=== PATIENT | male | born 1975 | race Caucasian/White ===

== ENCOUNTER 2023-08-08 11:20 | Inpatient (IN) | payer BC ==
[~2023-08-08] VITALS: Ht 177.8 cm; Wt 96.2 kg
[2023-08-08 11:35] VITALS: BP 145/77; PULSE 93; RESP 20; TEMP 98.5; O2SAT 99
[2023-08-08 12:36] LABS: BASOPHILS # (AUTO) 0.1 K/uL (0.00-0.22); BASOPHILS % (AUTO) 0.8 % (0.0-2.0); EOSINOPHILS # (AUTO) 0.7 K/uL (0-0.4); EOSINOPHILS % (AUTO) 7.6 % (0.0-4.0); HEMATOCRIT 39.5 % (36-52); HEMOGLOBIN 13.8 g/dL (12.0-18.0); LYMPHOCYTES # (AUTO) 2.8 K/uL (2.0-11.5); LYMPHOCYTES % (AUTO) 30.2 % (20.5-51.1); MEAN CORPUSCULAR HEMOGLOBIN 30 pg (27-31); MEAN CORPUSCULAR HGB CONC 35 g/dL (33-37); MEAN CORPUSCULAR VOLUME 85.2 fL (80-94); MONOCYTES # (AUTO) 0.7 K/uL (0.8-1.0); MONOCYTES % (AUTO) 7.1 % (1.7-9.3); NEUTROPHILS # (AUTO) 5.1 K/uL (1.8-7.7); NEUTROPHILS % (AUTO) 54.3 % (42.2-75.2); PLATELET COUNT (AUTO) 336 K/uL (140-450); RED BLOOD CELL COUNT(AUTO) 4.63 MIL/uL (4.20-6.10); RED CELL DISTRIBUTION WIDTH 13.1 % (11.6-13.7); WHITE BLOOD COUNT (AUTO) 9.4 K/uL (4.8-10.8)
[2023-08-08 13:17] LABS: ALANINE AMINOTRANSFERASE 19 U/L (12-78); ALBUMIN 3.8 g/dL (3.4-5.0); ALKALINE PHOSPHATASE 109 U/L (50-136); ASPARTATE AMINOTRANSFERASE 11 U/L (15-37); CALCIUM 9.2 mg/dL (8.5-10.1); CARBON DIOXIDE 27.9 mmol/L (21-32); CHLORIDE 105 mmol/L (98-107); CREATININE 0.9 mg/dL (0.6-1.3); GFR ARICAN-AMERICAN 116 mL/min (>90); GFR NON ARICAN-AMERICAN 96 mL/min (>90); GLUCOSE 147 mg/dL (74-106); POTASSIUM 3.9 mmol/L (3.5-5.1); SODIUM SERUM 141 mmol/L (136-145); THYROID STIMULATING HORMONE 0.64 uIU/mL (0.34-3.74); TOTAL BILIRUBIN 0.4 mg/dL (0.0-1.0); TOTAL PROTEIN, SERUM 7.5 g/dL (6.4-8.2); UREA NITROGEN, BLOOD 18 mg/dL (7-18)
[2023-08-08] MEDS ORDERED: MORPHINE SULFATE 2 MG/ML SYR IVP PRN (14:35)
[2023-08-08] MEDS ORDERED: HYDROcodone/APAP 5/325 MG 1 TAB TAB PO PRN (14:35)
[2023-08-08] MEDS ORDERED: ACETAMINOPHEN 325 MG TAB PO PRN (14:35)
[2023-08-08] MEDS: NACL 0.9% 1,000 ML IV SCH (14:48)
[2023-08-08] MEDS ORDERED: DEXTROSE 50% 50 ML SYR IVP PRN (15:50)
[2023-08-08] MEDS ORDERED: INSULIN LISPRO SLIDING SCALE 100 UNITS/ML VIAL SUBQ PRN (15:50)
[2023-08-08] MEDS: BLOOD GLUCOSE MONITORING 1 DEV DEV FS SCH ×2 (16:49→21:42)
[2023-08-08 17:56] VITALS: PULSE 62
[2023-08-08] MEDS ORDERED: QUEtiapine FUMARATE 100 MG TAB PO PRN (18:20)
[2023-08-08 19:30] VITALS: BP 113/70; PULSE 62; PULSE 70; RESP 18; TEMP 97.2; O2SAT 97
[2023-08-09] VITALS (7 sets, daily range): BP systolic 119–138; BP diastolic 63–88; PULSE 54–72; RESP 18–19; TEMP 96.1–98.6; O2SAT 95–99
[2023-08-09] MEDS: NACL 0.9% 1,000 ML IV SCH ×2 (03:55→11:14)
[2023-08-09] MEDS: BLOOD GLUCOSE MONITORING 1 DEV DEV FS SCH ×4 (06:38→20:42)
[2023-08-09 06:54] LABS: BASOPHILS # (AUTO) 0.1 K/uL (0.00-0.22); BASOPHILS % (AUTO) 1.3 % (0.0-2.0); EOSINOPHILS # (AUTO) 0.8 K/uL (0-0.4); EOSINOPHILS % (AUTO) 9.5 % (0.0-4.0); HEMATOCRIT 38.6 % (36-52); HEMOGLOBIN 13.4 g/dL (12.0-18.0); LYMPHOCYTES % (AUTO) 36.5 % (20.5-51.1); MEAN CORPUSCULAR HEMOGLOBIN 30 pg (27-31); MEAN CORPUSCULAR HGB CONC 35 g/dL (33-37); MEAN CORPUSCULAR VOLUME 85.1 fL (80-94); MONOCYTES # (AUTO) 0.6 K/uL (0.8-1.0); MONOCYTES % (AUTO) 7.7 % (1.7-9.3); NEUTROPHILS # (AUTO) 3.7 K/uL (1.8-7.7); PLATELET COUNT (AUTO) 274 K/uL (140-450); RED BLOOD CELL COUNT(AUTO) 4.53 MIL/uL (4.20-6.10); RED CELL DISTRIBUTION WIDTH 12.7 % (11.6-13.7); WHITE BLOOD COUNT (AUTO) 8.3 K/uL (4.8-10.8)
[2023-08-09 07:03] LABS: ALBUMIN 3.5 g/dL (3.4-5.0); ANION GAP 13.1 (8-16); CALCIUM 8.9 mg/dL (8.5-10.1); CARBON DIOXIDE 26.6 mmol/L (21-32); CREATININE 0.7 mg/dL (0.6-1.3); MAGNESIUM 2.1 mg/dL (1.8-2.4); PHOSPHORUS 4.3 mg/dL (2.5-4.9); POTASSIUM 3.7 mmol/L (3.5-5.1); TOTAL BILIRUBIN 0.5 mg/dL (0.0-1.0); TOTAL PROTEIN, SERUM 7.1 g/dL (6.4-8.2)
[2023-08-09] MEDS: ATORVASTATIN 20 MG TAB PO SCH (09:12)
[2023-08-09] MEDS: INSULIN LANTUS 100 UNITS/ML 10 ML VIAL SUBQ SCH (09:15)
[2023-08-09] MEDS: ASPIRIN 81 MG TAB.CHEW PO SCH (09:19)
[2023-08-09] MEDS ORDERED: HYDROcodone/APAP 5/325 MG 1 TAB TAB PO PRN (13:40)
[2023-08-09] MEDS: GABAPENTIN 300 MG CAP PO SCH (20:39)
[2023-08-09] MEDS ORDERED: traZODone 50 MG TAB PO SCH (21:00)
[2023-08-10] VITALS: BP 126/66; PULSE 64; PULSE 66; RESP 19; TEMP 97.9; O2SAT 98
[2023-08-10 04:00] VITALS: BP 122/65; PULSE 52; PULSE 66; RESP 18; TEMP 97.8; O2SAT 98
[2023-08-10] MEDS: BLOOD GLUCOSE MONITORING 1 DEV DEV FS SCH ×2 (06:47→11:51)
[2023-08-10 07:15] LABS: CHOL/HDL RATIO 4.1 (1-4.5)
[2023-08-10 08:00] VITALS: BP 119/63; PULSE 59; PULSE 61; RESP 17; TEMP 98.8; O2SAT 97
[2023-08-10] MEDS ORDERED: SERTRALINE 50 MG TAB PO SCH (09:00)
[2023-08-10] MEDS: ASPIRIN 81 MG TAB.CHEW PO SCH (09:14)
[2023-08-10] MEDS: ATORVASTATIN 20 MG TAB PO SCH (09:14)
[2023-08-10] MEDS: GABAPENTIN 300 MG CAP PO SCH (09:15)
[2023-08-10] MEDS: INSULIN LANTUS 100 UNITS/ML 10 ML VIAL SUBQ SCH (09:52)
[2023-08-10] MEDS ORDERED: GABA300C55 PO (10:53)
[2023-08-10] MEDS ORDERED: LANTUS SUBQ (10:53)
[2023-08-10] MEDS ORDERED: ATOR20TA40 PO (10:53)
[2023-08-10] MEDS ORDERED: HUMSLIDE SUBQ (10:53)
[2023-08-10] MEDS ORDERED: SERT-515 PO (10:53)
[2023-08-10] MEDS ORDERED: ASPI81CT95 PO (10:53)
[2023-08-10] MEDS ORDERED: TRAZ-466 PO (10:53)
[2023-08-10 12:00] VITALS: BP 152/93; PULSE 61; PULSE 64; RESP 17; TEMP 97.6; O2SAT 98
== END 2023-08-10 15:20 | disposition short-term general hospital (02) | DRG 66 ==
LOC: MED 11:20 → MTU 14:35
PROVIDERS: ADMIT Student in an Organized Health Care Education/Training Program; ATTEND Student in an Organized Health Care Education/Training Program
DX: I63.9 Cerebral infarction, unspecified (principal); I10 Essential (primary) hypertension; F17.210 Nicotine dependence, cigarettes, uncomplicated; E11.40 Type 2 diabetes mellitus with diabetic neuropathy, unspecified; M50.30 Other cervical disc degeneration, unspecified cervical region; G83.24 Monoplegia of upper limb affecting left nondominant side
CPT/HCPCS: 36415; 70450; 72125; 80053; 82948; 83036; 83735; 84100; 84443; 84484; 85025; 87081; 93005; 97116; 97163-GP; 99285; J1644; J1815; Q9967